=== PATIENT | female | born 1975 | race Caucasian/White ===

== ENCOUNTER 2017-01-13 15:38 | Emergency (ER) | payer BC, OTHER ==
[~2017-01-13] VITALS: Ht 162.6 cm; Wt 83.9 kg
[2017-01-13 18:18] VITALS: BP 125/85
== END 2017-01-13 18:46 | disposition home or self-care (01) ==
LOC: ER 16:01
DX: S50.02XA Contusion of left elbow, initial encounter (principal); S09.90XA Unspecified injury of head, initial encounter; S39.91XA Unspecified injury of abdomen, initial encounter; J45.909 Unspecified asthma, uncomplicated; E78.5 Hyperlipidemia, unspecified; V49.59XA Passenger injured in collision with other motor vehicles in traffic accident, initial encounter; Y93.89 Activity, other specified; Y99.8 Other external cause status; Y92.89 Other specified places as the place of occurrence of the external cause; Z88.6 Allergy status to analgesic agent
CPT/HCPCS: 70450; 73080; 74176; 81025